=== PATIENT | male | born 1945 | race Caucasian/White ===

== ENCOUNTER 2022-02-26 08:15 | Outpatient (RCR) | payer MEDICARE, BC, SELFPAY ==
--- NOTE | 2021-11-30 08:43 | PT.OPEX ---
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 Doesn't seem to make a difference what he does and pain is constant. MD reporting tearing in the cartilage, had xray only not MRI. Is left handed. -Increases in pain: rotational mvmts of shoulder, reaching overhead, grabbing items out of refrigerator reaching forward, pouring coffee, -Location of pain: C around deltoid - lateral deltoid -Goals: reduce pain PMHx: on warfarin Objective Other/Pertinent Objective Posture: R lateral trunk lean at rest medial border scapular winging. Fwd head and rounded shoulders L>R Palpation: TTP biceps and supraspinatous tendons on L RANGE OF MOTION UE AROM (R/L): -ER0: 80 R / 70 L -Abd: 135 R 135 L with EEP ( End range pain) -FF:140 R / 125 with pain on L with EEP. Medial/inferior angle scapular winging on L -MRE: C6 on R and L -LRF: to inferior angle on R shoulder for R UE / 3 inches above belt line with EEP on L STRENGTH UE Strength (R/L): -ER0: 4+ R / 3+ L with pain -IR0: 4+ bilat with L pain SPECIAL TESTS Labral: (R/L) -O?Briens: pos left Instability (R/L) -A/P load and shift: neg bilat -Sulcus sign neg bilat Impingement (R/L) -Neers:neg bilat -Blanco-Adrian: + left / - right -Posterior internal impingement: neg -Scap assistance test: positive on L -Painful arc: end range pain on L RC (R/L): -Drop arm: neg bilat -Lag sign: neg bilat -Belly press (subscap): neg bilat -Lift-off (subscap): pos on left -Hornblowers (teres minor/ infra): pos on left -Infraspinatus test (infra): pos on left -Full/empty can (supra): pos on left Functional Test Performed & Score QuickDASH score 23 indicating 27.2% impairment Assessment Assessment/Impression Pt is a 76 y/o male who presents with complaints of left shoulder pain. Signs and symptoms likely indicating / consistent with subacromial impingement with positive Hawkin's Adrian and positive scapular assistance test for pain reduction. Pt also showing positive testing for myofascial irritation with positive empty can, infraspinatous test, and hornblowers test for RC irritation of supraspinatous and infraspinatous. Cannot fully rule out underlying RC tear or other pathology at this time. Patient also has notable objective findings including forward head posture , rounded shoulders, and decreased sh AROM following capsular pattern also likely contributing to the problem. Patient is a good candidate for skilled therapy to target deficits described above. Skilled PT intervention is necessary for use of therapeutic exercise manual therapy, neuromuscular re- education, gait training, and therapeutic activity. Functional impairments include difficulty with: overhead reaching, reaching into fridge . See appropriate sections of PT eval for complete list of goals and POC. D/C plan and criteria is for pt to achieve the goals as listed below or until max rehab potential is met. Pt was agreeable with plan of care and goals established. 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 4) Pt will report at least 70% improvement in pain/symptoms since start of PT for return to PLOF 5) Patient will demonstrate quickDASH score <15 to show reduced pain during ADLs Treatment Plan/Direct Interventions Electrical Stimulation,Joint Mobilization,Manual Therapy, Neuromuscular Re-ed, Therapeutic Activities, Therapeutic Exercises, Ultrasound Frequency/Duration 1x/wk x 12 visits in 90 days Patient Will Be Discharged From Therapy Skills Plateau,Independent w/ HEP Evaluation Billing Untimed Code Treatment Minutes 20 Complexity Moderate Certification Information Initial Certification Date 11/30/21 Ending Certification Date 02/28/22 Provider Signature Shows Agreement With POC & Medical Necessity Physician Comment/Change Comment or Changes Physician NPI Number #
== END 2022-03-01 08:13 | disposition home or self-care (01) ==
PROVIDERS: PCP Family Medicine; Visit Provider Orthopaedic Surgery Sports Medicine
DX: M19.012 Primary osteoarthritis, left shoulder (principal); Z51.89 Encounter for other specified aftercare
CPT/HCPCS: 97110; 97112; 97140; 97162

== ENCOUNTER 2023-09-08 09:40 | Outpatient (CLI) | payer MEDICARE, BC, SELFPAY ==
--- OUTSIDE RECORDS SUMMARY | 2023-09-08 09:44 | XMS_ITS | Clinical Summary ---
Author Organization [employer] [facility] Address [place], [place] [address] Care Team Providers Care Real Estate Salesperson Name Role Phone Ernesto Reed MD Primary Care Provider Allergies Active Allergy Reactions Criticality Noted Date Comments Penicillins Hives,Syncope High 09/27/2008 Per pt 07/05/15 Medications Medication Sig Dispensed Refills Start Date End Date Status MULTI-VITAMIN TAB 0 0 09/27/2008 Active lactobac cmb #0-gzw-kiqdghkxvy (PROBIOTIC & ACIDOPHILUS) 300-250 million cell-mg cap Take by mouth. 0 04/13/2015 Active acetaminophen (TYLENOL EXTRA STRENGTH) 500 mg tablet Take 1 tablet by mouth every 6 hours if needed. Max acetaminophen dose: 4000mg in 24 hrs. 2 tablet 11/12/2018 Active Bgivb-5-PUW-EPA-Fis h Oil (FISH OIL) 1,000 mg (120 mg-180 mg) capIndications:Take s dietary supplements Take 1 capsule by mouth. 0 03/22/2020 Active polyethylene glycol-electrolyte (GOLYTELY) 236-22.74-6.74 -5.86 gram suspensionIndicatio ns:History of colon polyps Drink 2 liters (half the bottle) the day before colonoscopy and 2 liters (remaining prep) 6 hours prior to colonoscopy appointment. 4000 mL 04/01/2023 Active warfarin (COUMADIN) 3 mg tabletIndications:P ulmonary embolism and infarction (HC),Anticoagulatio n monitoring, INR range 2-3 Take by mouth 09/02: Hold; 09/03: Hold; 09/04: Hold; 09/05: Hold; 09/06: Hold; Otherwise 3 mg every Mon, Carmenza; 6 mg all other days in the evening OR as directed 07/09/2023 Active warfarin (COUMADIN) 6 mg tabletIndications:P ulmonary embolism and infarction (HC),Anticoagulatio n monitoring, INR range 2-3 Take by mouth 09/02: Hold; 09/03: Hold; 09/04: Hold; 09/05: Hold; 09/06: Hold; Otherwise 3 mg every Mon, Carmenza; 6 mg all other days in the evening OR as directed 07/21/2023 Active Active Problems Problem Noted Date Diagnosed Date Anticoagulation monitoring, INR range 2-3 2013 Diverticulitis 11/05/2013 Pulmonary nodule, surveillance completed 2015 Venous insufficiency 03/22/2013 Psoriasis 03/22/2013 Hypertrophy of prostate with out urinary obstruction and other lower urinary tract symptoms (LUTS) 03/07/2011 Rosacea 02/16/2010 Prediabetes 02/23/2009 OA (osteoarthritis) 02/23/2009 Primary hypercoagulable state 09/27/2008 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 09 Resolved Problems Problem Noted Date Diagnosed Date Resolved Date Hyperlipidemia, unspecified 06/04/2016 01/02/2022 Neck pain 03/07/2011 03/22/2013 Psoriasis 02/16/2010 03/07/2011 Colon polyp 01/31/2010 01/02/2022 Overview: Colonoscopy 01/2010 polyps repeat in 3 years Colonoscopy 01/2013 normal repeat in 5 years Colonoscopy 03/2018 polyp, repeat in 5 years Bilateral cataracts 09/27/2008 06/17/19 18 Encounters Date Type Department Care Team Description 08/19/2023 10:05 AM CDT Preop Visit [facility] [address] [facility] [place] [address] Ernesto Reed MD Preoperative Exam (DOS: 09/08/2023, colonoscopy, Dr. Blunt, [facility]) 08/19/2023 9:45 AM CDT Orders Only [facility] [address] [facility] [address] [facility] [place] [facility] 08/19/2023 Anticoagulation (warfarin) [facility] [address] [place] [address] [facility] Anticoagulation 08/19/2023 Travel 07/21/2023 10:30 AM CDT Orders Only [facility] [address] [place] [address] [facility] [place] [facility] 07/21/2023 Anticoagulation (warfarin) [facility] [address] [place] [address] 1[facility] Anticoagulation 07/21/2023 Travel 07/21/2023 Refill [facility] [address] [place] [address] 1[facility] Refill Request (Warfarin) 07/09/2023 Anticoagulation (warfarin) [facility] [address] [place] [address] 1, [facility] Anticoagulation (Chart update/hold orders) 07/09/2023 Telephone [facility] [address] [place] [address] Ernesto Reed MD Anticoagulation (Colonoscopy HOLD orders) 06/16/2023 9:15 AM CDT Orders Only [address] [address] Lab[facility] [place] [facility] 06/16/2023 Anticoagulation (warfarin) [facility] [address] [place] [address] 1[facility] [place] Anticoagulation 06/16/2023 Travel from Last 3 Months Immunizations Name Administration Dates Next Due AMB Influenza, IIV3 (Age >=3 years)(Flu Clinic Only) 11/30/2012,12/24/2011 Amb Influenza, Inact (High-d ose) (Flu Clinic Only) 12/05/2015 Amb Influenza, Inactivated A IIV4 (Age 65+ Years) Preserv Free 12/06/2019 COVID-19 Vaccine Spikevax (M oderna 50mcg/0.5mL) 12YO+ [id number] Formula PF 02/05/2023 COVID-19 vaccine (BigCalc-Bio NTech 30mcg/0.3mL) 12YO+ BIVALENT PF, MDV 08/19/2022 COVID-19 vaccine (Red ClayBio NTech 30mcg/0.3mL) 12YO+ NU-SUCROSE PF, MDV 06/25/2021 COVID-19 vaccine (Red ClayBio NTech 30mcg/0.3mL) PF, MDV 12/11/2020,06/06/2020,05/16/2020 Influenza, High-dose Inactivated 11/27/2018,100 11/2017,12/15/2014 Influenza, High-dose Quadriv alent Inactivated 12/07/2021 Influenza, IIV3 (Age >=3 years) 11/30/2010,11/22,12/07/2008 Influenza, IIV4 12/01/2013 Influenza, Inactivated AIIV4 (Age 65+ Years) Preserv Free 11/28/2020 Influenza, Inactivated IIV3 (Age 65+ Years) Preserv Free 12/02/2016 Pneumococcal Conj 20-valent (Prevnar 20) 023 Pneumococcal Poly,23-Valent (Pneumovax) 06/17/19 18 Pneumococcal conj 13-Valent (Prevnar 13) 015 RSV, Recombinant ADJ Reconst ituted (Arexvy 120MCG/0.5mL) 02/26/2023 Td (Age >=7 Years) 11/01/2004 Tdap 05/09/2022,03/13/2012 Zoster (Shingrix-RZV, recombinant) 10/19/2018, Zoster (Zostavax-ZVL, live) 12/24/2006 Family History Medical History Relation Name Comments Heart Disease Brother Stent around 7 8 Cancer-prostate Father Other Paternal Aunt part of bowel removed Cancer-colon Paternal Grandmother Anesthesia Problem No Family History Diabetes No Family History Relation Name Status Comments Brother Father Paternal Aunt Paternal Grandmother Social History Tobacco Use Types Packs/Day Years Used Date Smoking Tobacco: Former Cigarettes 1 45 0 03/1957 - 03/2002 Smokeless Tobacco: Never Tobacco Cessation:Counseling Given: No Alcohol Use Standard Drinks/Week Comments No 0 (1 standard drink = 0.6 oz pur e alcohol) PHQ-2 Answer Date Recorded PHQ-2 TOTAL SCORE 0 02/25/2023 Social Connections Answer Date Recorded Frequency of Communication with Friends and Fami ly Not on file 03/17/2021 Financial Resource Strain Answer Date R ecorded Difficulty of Paying Living Expenses Not on file 03/17/2021 Difficulty of Paying Living Expenses Not on file 03/17/2021 Sex and Gender Information Value Date Recorded Sex Assigned at Not on file Gender Identity Not on file Sexual Orientation Not on file Obstetrics History Last Filed Vital Signs Vital Sign Reading Time Taken Comments Blood Pressure 114/73 08/19/2023 10:05 AM CDT Pulse 60 08/19/2023 10:05 AM CDT Temperature 36.4 ??C (97.5 ??F) 04/22/2023 1:37 PM CS T Respiratory Rate 18 03/27/2021 2:35 PM FELT COVERER Oxygen Saturation 95% 08/19/2023 10:05 AM CDT Inhaled Oxygen Concentration - - Weight 71 kg (156 lb 9.6 oz) 08/19/2023 10:05 AM CDT Height 172.7 cm (5' 8) 08/19/2023 10:05 AM CDT Body Mass Index 23.81 08/19/2023 10:05 AM CDT Plan of Treatment Upcoming Encounters Date Type Department Care Team (Late st Contact Info) Description 09/08/2023 9:45 AM CDT Office Visit [facility] at [facility] [address] [place] [phone] Modesto Blunt MD [address] [place] [address] Arrived 09/15/2023 7:45 AM CDT Orders Only [facility] [address] [place] [address] [facility] [place] [facility] Maintenance Due Date Last Done Comments COVID-19 vaccine series ( season) 2023 02/05/2023, 11/04/2022, 08/19/2022, Additional history exists Influenza for age 65+ 11/16/2023 12/07/2021 , 11/28/2020, 12/06/2019, Additional history exists Depression screening for age 12+ 02/26/2024 02/25/2023, 01/03/2022, 01/03/2022, Additional history exists Medicare Wellness for age 65+ 02/26/2024, 01/02/2022, 12/07/2020, Additional history exists BMI (ht and wt on same day) for age 18+ 08/18/2024 08/19/2023, 05/26/2023, 02/25/2023, Additional history exists Tetanus booster 05/09/2032 05/09/2022, 02/15, 11/01/2004 Zoster (shingles) series for age 50+ Completed 10/19/2018, 08/18/2018, 12/24/2006 Tdap Completed 05/09/2022, 03/13/2012 Pneumococcal series for age 65+ Completed 08/19/2022, 06/16/2017, 05/04/2014, Additional history exists Procedures Procedure Name Priority Date/Time Associated Diagnosis Comments COLONOSCOPY SCREENING Routine 09/08/2023 8:01 AM CDT Screening for colon cancer INR,POCT Routine 08/19/2023 9:53 AM CDT Other pulmonary embolism and infarction Anticoagulation monitoring, INR range 2-3 INR,POCT Routine 07/21/2023 10:35 AM CDT Other pulmonary embolism and infarction Anticoagulation monitoring, INR range 2-3 PROTIME-INR STAT 06/16/2023 9:20 AM CDT Other pulmonary embolism and infarction Anticoagulation monitoring, INR range 2-3 from Last 3 Months Results * (ABNORMAL) INR,POCT (08/19/2023 9:53 AM CDT) Only the most recent of2 resultswithin the time period is included. INR 1.9(H) <1.3 08/19/2023 9:56 AM CDT [facility] Blood BLOOD SPECIMEN / Unknown 08/19/2023 9:53 AM CDT 08/19/2023 9:56 AM CDT Narrative [facility] - 08/19/2023 9:56 AM CDT ?Therapeutic Range 2.0-3.0 for most anticoagulated patients 2.5-3.5 or 4.0 for high risk patients Ernesto Reed MD LABORATORY Performing Organization Address [facility]/ZIP Co de Phone Number [facility] [address] [place] [address], * (ABNORMAL) PROTIME-INR (06/16/2023 9:20 AM CDT) INR 2.8(H) <1.3 06/16/2023 3:26 PM CDT [facility] PROTIME 30.2(H) 10.3 - 12.3 sec 06/16/2023 3:26 PM CDT [facility] Blood BLOOD SPECIMEN / Unknown Venipuncture / Unknown 06/16/2023 9:20 AM CDT 06/16/2023 9:20 AM CDT Narrative [facility] - 06/16/2023 3:26 PM CDT ?Therapeutic Range 2.0-3.0 for most anticoagulated patients 2.5-3.5 or 4.0 for high risk patients The INR is only used for patients on stable oral anticoagulant therapy. It makes no significant contribution to the diagnosis or treatment of patients whose Protime is prolonged for other reasons. INR results are increased when heparin levels exceed 1.0 U/mL, which corresponds to an aPTT >125 seconds if the patient is on UFH. Ernesto Reed MD HEMATOLOGY Performing Organization Address [facility]/ZIP Co de Phone Number [facility] 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
--- NOTE | 2023-09-08 10:42 | W.ANESCHARGE ---
Anesthesia Charges Start Date/Time Anesthesia Start Date: 09/08/23 Anesthesia Start Time: 10:15 Stop Date/Time Anesthesia Stop Date: 09/08/23 Anesthesia Stop Time: 10:39
--- NOTE | 2023-09-08 11:18 | W.ANESCHARGE ---
Anesthesia Charges Start Date/Time Anesthesia Start Date: 09/08/23 Anesthesia Start Time: 10:15 Stop Date/Time Anesthesia Stop Date: 09/08/23 Anesthesia Stop Time: 10:39 Summary Extremes of Age - Over 70 or under 1: MDA
== END 2023-09-08 09:41 | disposition home or self-care (01) ==
LOC: OP CLINIC 09:42
PROVIDERS: PCP Family Medicine; Visit Provider Internal Medicine Gastroenterology
DX: Z12.11 Encounter for screening for malignant neoplasm of colon (principal); K63.5 Polyp of colon; K57.30 Diverticulosis of large intestine without perforation or abscess without bleeding; Z86.010 Personal history of colon polyps
CPT/HCPCS: 00811; 45385; 88305; 99100; J2704

== ENCOUNTER 2023-11-08 12:11 | Emergency (ER) | payer MEDICARE, BC, SELFPAY ==
[2023-11-08 12:20] VITALS: BP 121/68; PULSE 95; RESP 24; TEMP 37.6; O2SAT 94; BMI 23.1
--- NOTE | 2023-11-08 12:37 | CRLHL7_ITS ---
For Patients: As a result of the Century Cures Act, medical imaging exams and procedure reports are released immediately into your electronic medical record. You may view this report before your referring provider. If you have questions, please contact your health care provider. INDICATION: Chest pain. TECHNIQUE: Chest 1 views. COMPARISON: None. FINDINGS: Cardiovasculature and mediastinum: Heart size is normal. Unremarkable mediastinum. Lungs and pleural spaces: Lungs are clear. No sign of infiltrate or mass. No sign of pleural effusion. No pneumothorax. Bones and soft tissues: No significant findings. IMPRESSION: No acute or significant findings. Dictated by Christopher Nolasco MD @ 11/08/2023 1:26:43 PM (Electronically Signed)
--- NOTE | 2023-11-08 12:38 | ED_ITS ---
HPI - General Adult General Chief complaint: Fever Stated complaint: high fever Time Seen by Provider: 11/08/23 12:14 History of Present Illness HPI narrative: [age] year white male who tested positive at home for COVID today has had a cough for couple of days, had a fever today. His has had breast cancer and other immunologic problems and he is concerned about her. She has not been ill. The patient reports that he has had a cough not short of breath, he has had no chest pain. He has had no leg swelling or edema. He has had no chronic lung disease. 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 Related Data Home Medications ?Medication ?Instructions ?Recorded ?Confirmed warfarin 6 mg tablet 6 mg PO DIRECTED 10/22/21 08/12/22 aspirin 81 mg tablet,delayed 81 mg PO QDAY 10/23/21 08/12/22 release (Adult Aspirin Regimen) Allergies Allergy/AdvReac Type Severity Reaction Status Date / Time Penicillins Allergy Severe Anaphylactic Verified 07/08/22 19:10 shock Review of Systems Status of ROS: Reports: 6 or more systems reviewed and unremarkable except as noted in History and below [facility] Medical History Pulmonary embolism ?I26.99 - Other pulmonary embolism without acute cor pulmonale (ICD-10) Factor V Leiden ?D68.51 - Activated protein C resistance (ICD-10) Surgical History H/O bone graft ?Z98.890 - Other specified postprocedural states (ICD-10) Family History Father No problems noted. Mother No problems noted. Social History Smoking Status: Former smoker What tobacco products do you use: cigarettes Years smoked: 45, cigars and pipe Do you use any of these nicotine containing products: Smokeless Tobacco Second hand tobacco smoke exposure: No How often do you have a drink containing alcohol: never AUDIT-C Alcohol total score: 0 Non-prescribed substance use: denies use Exam Narrative: Exam Narrative: Objective: Temp 99.6? O2 sat 94% on room air Alert orient x3 noncyanotic HEENT is unremarkable Neck is supple Chest clear no rales or wheezing Heart rhythm regular heart murmur Extremities are no edema neurologic nonfocal grossly patient is ambulatory Const: Vital Signs, click to edit/add: Vital Signs - 24 hr 11/08/23 12:20 Temperature 99.6 F Pulse Rate [Right Radial] 95 Respiratory Rate 24 Blood Pressure [Ri ght Upper Arm] 121/68 Pulse Oximetry 94 Oxygen Delivery Me thod Room Air Course Vital Signs Vital signs: Initial Vital Signs Temperature 99.6 F 11/08/23 12:20 Temperature Source Temporal Artery Scan 11/08/23 12:20 Pulse Rate 95 11/08/23 12:20 Pulse Rhythm Regular 11/08/23 12:20 Respiratory Rate 24 11/08/23 12:20 Blood Pressure 121/68 11/08/23 12:20 Blood Pressure Mean 85 11/08/23 12:20 Pulse Oximetry 94 11/08/23 12:20 Oxygen Delivery Method Room Air 11/08/23 12:20 Vital Signs Temperature 99.6 F 11/08/23 12:20 Pulse Rate 95 11/08/23 12:20 Respiratory Rate 24 11/08/23 12:20 Blood Pressure 121/68 11/08/23 12:20 Pulse Oximetry 94 11/08/23 12:20 Oxygen Delivery Method Room Air 11/08/23 12:20 Temperature 99.6 F 11/08/23 12:20 Pulse Rate 95 11/08/23 12:20 Respiratory Rate 24 11/08/23 12:20 Blood Pressure 121/68 11/08/23 12:20 Pulse Oximetry 94 11/08/23 12:20 Oxygen Delivery Method Room Air 11/08/23 12:20 Medical Decision Making [facility] Narrative Medical decision making narrative: [age] year white male with a history of being vaccinated for COVID multiple times, no vaccine or booster recently, he has a positive COVID test, will repeat a COVID test here, I will also get a one view chest x-ray to make sure does not have a segmental appearing pneumonia or other issue. I suspect this is all related to COVID. Given he is on Coumadin I do not think that Paxil of id be a good option for him. He does not appear clinically ill of significance certainly if things private branch exchange service adviser the next couple of days that could be rib re-ev aluated. He may wish to get a oximeter for home. Avoidance of his spouse would be reasonable and he does report that that is possible in her home environment. Addendum 1:00 p.m. the patient's chest x-ray by my read looks negative. Will finish his COVID test but thinking go home rest light activity. Discussing the pros and cons of using Paxil of id in his anticoagulant state I would err on the side of not treating him with that given that could alter his anticoagulation with a factor 5 mutation that could increase his risk of clotting. I think I would recommend he recheck with regular doctor as needed update them in the next couple days and avoidance of any persons who are ill or other contacts until he feels well he was comfortable as planned Lab Data Labs: Lab Results 11/08/23 Range/Units 12:20 SARS-CoV-2 (PCR) POSITIVE SARS-CoV-2 A (Negative) Influenza Type A (PCR) Negative PCR FLU A (Negative) Influenza Type B (PCR) Negative PCR FLU B (Negative) RSV (PCR) Negative PCR RSV (Negative) Discharge Plan Discharge Clinical Impression: COVID-19 Patient Disposition: Home, Self-Care Condition: Stable Instructions: COVID-19 (Coronavirus Disease 2019) (ED) Additional Instructions: Tylenol as needed, rest, fluids, avoidance of your significant other near home as much as possible, wear a mask regularly around the home. We would recommend you recheck if there is problems or concerns, we could consider getting an oximeter such as from a pharmacy or drug store to monitor your oxygen level. Update your regular doctor in a couple of days, return to the ED as needed sooner. Activity Level: Light activity Discharge Diet: Regular Prescriptions: No Action warfarin 6 mg tablet 6 mg PO DIRECTED Rx Instructions: 6mg daily except for Thurs. then 3mg aspirin [Adult Aspirin Regimen] 81 mg tablet,delayed release (DR/EC) 81 mg PO QDAY Follow Up/Referrals: Ernesto Reed MD [Primary Care Provider] - Stand Alone Forms: [facility] Info Instructions
--- OUTSIDE RECORDS SUMMARY | 2023-11-08 12:45 | XMS_ITS | Clinical Summary ---
Author Organization [employer] [facility] [employer] Address [place], [place] [address] Care Team Providers Care Legal File Clerk Name Role Phone Ernesto Reed MD Primary Care Provider Allergies Active Allergy Reactions Criticality Noted Date Comments Penicillins Hives,Syncope High 09/27/2008 Per pt 07/05/15 Medications Medication Sig Dispensed Refills Start Date End Date Status MULTI-VITAMIN TAB 0 0 09/27/2008 Active lactobac cmb #3-pkh-nybwaozesc (PROBIOTIC & ACIDOPHILUS) 300-250 million cell-mg cap Take by mouth. 0 04/13/2015 Active acetaminophen (TYLENOL EXTRA STRENGTH) 500 mg tablet Take 1 tablet by mouth every 6 hours if needed. Max acetaminophen dose: 4000mg in 24 hrs. 2 tablet 11/12/2018 Active Ipfgf-6-GWJ-EPA-Fis h Oil (FISH OIL) 1,000 mg (120 [...] Encounters Date Type Department Care Team Description 10/23/2023 8:45 AM CDT Orders Only [facility] [address] [facility] [place] [address] [facility] [place] [facility] 10/23/2023 Anticoagulation (warfarin) [facility] [address] [place] [address] 1, [facility] Anticoagulation 10/23/2023 Travel 09/23/2023 Telephone [facility] [address] [facility] [place] [address] Ernesto Reed MD Anticoagulation (Annual re-enrollment ) 09/15/2023 7:45 AM CDT Orders Only [facility] [address] [place] [address] Lab, [place] [facility] 09/15/2023 Anticoagulation (warfarin) [facility] [address] [place] [address] 1, [place] Anticoagulation 09/15/2023 Travel 09/08/2023 9:45 AM CDT Office Visit [facility] at [facility] [address] [place] [address] Modesto Blunt MD 09/08/2023 Lab Requisition [facility] [phone] Modesto Blunt MD 08/19/2023 10:05 AM CDT Preop Visit [facility] [address] [place] [address] Ernesto Reed MD Preoperative Exam (DOS: 09/08/2023, colonoscopy, Dr. Blunt, [facility]) 08/19/2023 9:45 AM CDT Orders Only [facility] [address] [place] [address] Lab, [place] [facility] 08/19/2023 Anticoagulation (warfarin) [facility] [address] [place] [address] 1, [place] Anticoagulation 08/19/2023 Travel from Last 3 Months Immunizations Name Administration Dates Next Due AMB Influenza, IIV3 (Age >=3 years)(Flu Clinic Only) 11/30/2012,12/24/2011 Amb Influenza, Inact (High-d ose) (Flu Clinic Only) 12/05/2015 Amb Influenza, Inactivated A IIV4 (Age 65+ Years) Preserv Free 12/06/2019 COVID-19 Vaccine Spikevax (M oderna 50mcg/0.5mL) 12YO+ 3054-2445 Formula PF 02/05/2023 COVID-19 vaccine (Pfizer-Bio NTech 30mcg/0.3mL) 12YO+ BIVALENT PF, MDV 08/19/2022 COVID-19 vaccine (Pfizer-Bio NTech 30mcg/0.3mL) 12YO+ NU-SUCROSE PF, MDV 06/25/2021 COVID-19 vaccine (Pfizer-Bio NTech 30mcg/0.3mL) PF, MDV 12/11/2020,06/06/2020,05/16/2020 Influenza, High-dose Inactivated 11/27/2018,10/0 11/2017,12/15/2014 Influenza, High-dose Quadriv alent Inactivated 12/07/2021 [...] T Respiratory Rate 18 03/27/2021 2:35 PM DECORATION CHECKER Oxygen Saturation 95% 08/19/2023 10:05 AM CDT Inhaled Oxygen Concentration - - Weight 71 kg (156 lb 9.6 oz) 08/19/2023 10:05 AM CDT Height 172.7 cm (5' 8) 08/19/2023 10:05 AM CDT Body Mass Index 23.81 08/19/2023 10:05 AM CDT Plan of Treatment Upcoming Encounters Date Type Department Care Team (Late st Contact Info) Description 12/02/2023 3:30 PM CDT Orders Only [facility] [address] [place], [place] [id number] [facility] [place] [facility] Maintenance Due Date Last [...] Procedure Name Priority Date/Time Associated Diagnosis Comments PROTIME-INR STAT 10/23/2023 8:51 AM CDT Other pulmonary embolism and infarction Anticoagulation monitoring, INR range 2-3 PROTIME-INR STAT 09/15/2023 7:47 AM CDT Other pulmonary embolism and infarction Anticoagulation monitoring, INR range 2-3 LAB TRACKING EVENT Routine 09/08/2023 10 :27 AM CDT PATH TISSUE EXAM Routine 09/08/2023 10:2 7 AM CDT COLONOSCOPY SCREENING Routine 09/08/2023 12:00 AM CDT Screening for colon cancer INR,POCT Routine 08/19/2023 9:53 AM CDT Other pulmonary embolism and infarction Anticoagulation monitoring, INR range 2-3 from Last 3 Months Results * (ABNORMAL) PROTIME-INR (10/23/2023 8:51 AM CDT) Only the most recent of2 resultswithin the time period is included. INR 2.9(H) <1.3 10/23/2023 1:33 PM CDT [facility] PROTIME 30.9(H) 10.3 - 12.3 sec 10/23/2023 1:33 PM CDT [facility] Blood BLOOD SPECIMEN / Unknown Venipuncture / Unknown 10/23/2023 8:51 AM CDT 10/23/2023 8:52 AM CDT Narrative [facility] - 10/23/2023 1:33 PM CDT ?Therapeutic Range 2.0-3.0 for most [...] Ernesto Reed MD HEMATOLOGY Performing Organization Address [facility] de Phone Number [facility] [address] [place] [address], * LAB TRACKING EVENT (09/08/2023 10:27 AM CDT) Other (Other) Client Collect / Unknown 09/08/2023 10:27 AM CDT 09/08/2023 9:52 PM CDT Modesto Blunt MD LAB BILL ONLY Performing Organization Address [facility] de Phone Number [facility] [address] [place] [address], * PATH TISSUE EXAM (09/08/2023 10:27 AM CDT) Case Report Pathology Report ?Case: [id number] ? Authorizing Provider: ??Modesto Blunt MD ?? Collected: ? 09/08/2023 1027 ? Ordering Location: ? [facility] ?Received: ?09/09/2023 1406 ? Pathologist: ? Daren Sky MD ? Specimen: ?Descending Colon Polyp ? 09/10/2023 11:23 AM CDT [facility] [employer] LABORAT[facility]-C ENTRAL LABORATORY Final Diagnosis A) COLON, DESCENDING, POLYPECTOMY: 1. Tubular adenoma 2. Negative for high grade dysplasia 3. Per the colonoscopy report: ?? a. Polyp size: 3 mm ?? b. Resection: Complete ?? c. Retrieval: Complete 09/10/2023 11:23 AM CDT [facility] Clinical Information Mr. Valerio is a 78 y.o. undergoes surveillance colonoscopy resulting in polypectomy x 1. 09/10/2023 11:23 AM CDT [facility] Gross Description A) Received in formalin is a gold mucosal fragment measuring 4 mm in greatest dimension, which is entirely submitted in one cassette. It is labeled with the patient's name and designated descending colon polyp. Fanny Mistry 09/09/2023 2:32 PM 09/10/2023 11:23 AM CDT [facility] Microscopic Description The final diagnosis is based on microscopic examination of appropriate sections of all specimens. 09/10/2023 11:23 AM CDT [facility] EN[facility] Additional Information Interpreted at [facility], Central Laboratory - [address] [address] 09/10/2023 11:23 AM T [facility] Other (Descending Colon Polyp) 09/08/2023 10:27 AM CDT 09/09/2023 2:06 PM CDT Modesto Blunt MD PATHOLOGY/CYTOLOG Y [facility] [address] [place] [address], [place] * COLONOSCOPY SCREENING (09/08/2023 12:00 AM CDT) Ernesto Reed MD GI PROCEDURE O RD * (ABNORMAL) INR,POCT (08/19/2023 9:53 AM CDT) INR 1.9(H) <1.3 08/19/2023 9:56 AM CDT [facility] Blood BLOOD SPECIMEN / Unknown 08/19/2023 9:53 AM CDT 08/19/2023 9:56 AM CDT Narrative [facility] - 08/19/2023 9:56 AM CDT ?Therapeutic Range 2.0-3.0 for most anticoagulated patients 2.5-3.5 or 4.0 for high risk patients Ernesto Reed MD LABORATORY Performing Organization Address [facility] Co de Phone Number [facility] [address] [place] [address], from Last 3 Months Advance Directives Documents on File Type Date Recorded Patient Manager Case Management Expl anation Healthcare Directive 01/02/2006 health care directive, [facility], 01/02/06 Healthcare Directive 01/02/2006 HEALTH CARE DIRECTIVE REVISED , [facility], 01/02/2006 Care Teams Legal File Clerk Relationship Specialty Start Date End Date Ernesto Reed MD [address] [place] [address] PCP - General Family Practice 06/07/16
[2023-11-08 13:15] LABS: PCR FLU A Negative PCR FLU A (Negative); PCR FLU B Negative PCR FLU B (Negative); PCR RSV Negative PCR RSV (Negative); SARS PCR* POSITIVE SARS-CoV-2 (Negative)
== END 2023-11-08 13:06 | disposition home or self-care (01) ==
LOC: ED 12:44
PROVIDERS: Emergency Provider Family Medicine; PCP Family Medicine
DX: U07.1 COVID-19 (principal)
CPT/HCPCS: 71045; 87631; 99283; 99284

== ENCOUNTER 2024-05-20 11:01 | Outpatient (CLI) | payer MEDICARE, BC, SELFPAY ==
--- NOTE | 2024-05-20 11:15 | CRLHL7_ITS ---
For Patients: As a result of the Century Cures Act, medical imaging exams and procedure reports are released immediately into your electronic medical record. You may view this report before your referring provider. If you have questions, please contact your health care provider. Indication: Left hip pain Comparison: 04/23/2024 Procedure : Informed consent was obtained. The site was marked. Time-out was performed. The skin of the left hip was cleansed with ChloraPrep. A sterile drape was placed. 8 cc of 1 percent lidocaine was administered for superficial anesthesia. Subsequently a 22 gauge spinal needle was introduced into the left hip joint under intermittent fluoroscopic guidance. Subsequently, 7 cc of 1 percent lidocaine and 2 cc of 40 milligram/cc Depo-Medrol then placed into the left hip joint. The needle was removed and hemostasis achieved with direct pressure. A dressing was placed. The patient tolerated the procedure well without immediate complication. Total fluoroscopy time 13 seconds. Impression: Successful fluoroscopically guided injection of the left hip with 80 milligrams of Depo-Medrol. Dictated by Antony Perez MD @ 05/20/2024 12:16:54 PM (Electronically Signed)
== END 2024-05-20 11:02 | disposition home or self-care (01) ==
LOC: RAD 11:01
PROVIDERS: PCP Family Medicine; Visit Provider Orthopaedic Surgery Sports Medicine
DX: M25.552 Pain in left hip (principal); M16.12 Unilateral primary osteoarthritis, left hip
CPT/HCPCS: 20610; 77002; Q9966